=== PATIENT | female | born 1945 | race Hispanic/Latino ===

== ENCOUNTER 2018-08-07 06:20 | Observation (INO) | payer OTHER, MEDICARE ==
[2018-08-04 12:55] LABS: BASOPHILS % 0.3 % (0.0-1.0); EOSINOPHILS # (AUTO) 0.1 (0.0-0.4); EOSINOPHILS % 1.5 % (0.0-6.0); HEMOGLOBIN 11.8 g/dL (12.0-16.0); LYMPHOCYTES % 28.5 % (18.0-39.1); MEAN CORPUSCULAR HEMOGLOBIN 30.2 pg (28-32); MEAN CORPUSCULAR HGB CONC 32.8 g/dL (31-35); MEAN CORPUSCULAR VOLUME 92.1 fL (81-99); MONOCYTES # (AUTO) 0.6 (0.2-0.8); MONOCYTES % 7.7 % (4.4-11.3); NEUTROPHILS # (AUTO) 4.4 (2.1-6.9); NEUTROPHILS % 61.7 % (38.7-80.0); PLATELET COUNT 248 x10e3/uL (140-360); RED BLOOD COUNT 3.91 x10e6/uL (3.6-5.1); RED CELL DISTRIBUTION WIDTH 13.3 % (11.7-14.4)
[2018-08-04 13:12] LABS: ANION GAP 13.9 mmol/L (8-16); BLOOD UREA NITROGEN 24 mg/dL (7-26); BUN/CREATININE RATIO 35 (6-25); CALCIUM 9.9 mg/dL (8.4-10.2); CARBON DIOXIDE 26 mmol/L (22-29); CHLORIDE 105 mmol/L (98-107); CREATININE, SERUM 0.68 mg/dL (0.57-1.11); EST GLOMERULAR FILTRATION RATE > 60 ML/MIN (60-); GLUCOSE 152 mg/dL (74-118); POTASSIUM 3.9 mmol/L (3.5-5.1); SODIUM 141 mmol/L (136-145)
--- NOTE | 2018-08-04 13:59 | Diagnostic Imaging Report ---
Frontal and lateral views of the chest. HISTORY: Preop for right total knee arthroplasty, chronic knee pain COMPARISON: None available. DISCUSSION: Lungs: The lungs are well inflated. No evidence of a consolidative pneumonia or pulmonary alveolar edema. Pleura: No pleural effusion or pneumothorax. Heart and mediastinum: The cardiomediastinal silhouette appears unremarkable. Bones: No acute osseous lesion. Multilevel anterior flowing nonmarginal syndesmophytes, compatible with DISH (Diffuse idiopathic skeletal hyperostosis). IMPRESSION: No acute radiographic abnormality. Signed by: Dr. Leonard Ochoa D.O., M.M.M. on 08/04/2018 1:55 PM
[~2018-08-07 06:20] MED LIST: ACTOS15 MG PO; ATENOLOL50 MG PO; BASAGLAR SC; GLIMEPIRIDE2 MG PO; KLOR-CON 88 MEQ PO; LISINOPRIL10 MG PO; METFORMIN HCL500 M2 PO; ROPIVACAINE 246.25 MG, EPINEPHRINE HCL 1:1000 0.5 MG, CLONIDINE HCL 0.08 MG, KETOROLAC ... INJ ONE; SIMVASTATIN20 MG PO; TYLENOL WITH C1 EACH PO; ULTRAM 50MG50 MG PO
[2018-08-07] MEDS ORDERED: CELECOXIB 200 MG CAP ONE (06:44)
[2018-08-07] MEDS ORDERED: GABAPENTIN 300 MG CAP ONE (06:44)
[2018-08-07] MEDS ORDERED: DEXAMETHASONE SOD PHOS 10 MG/1 ML VIAL ONE (06:44)
[2018-08-07] MEDS ORDERED: CEFAZOLIN SOD 2 GM/D5W 50ML 50 ML IV ONE (06:44)
[2018-08-07] MEDS ORDERED: BACITRACIN 50,000 UNIT VIAL ONE (07:19)
[2018-08-07] MEDS ORDERED: TRANEXAMIC ACID 1,000 MG/10 ML ML ONE (07:19)
[2018-08-07] MEDS ORDERED: HYDROCODONE/APAP 5MG-325MG TAB PO PRN (09:45)
[2018-08-07] MEDS ORDERED: PROMETHAZINE HCL (IM) 25 MG/ML VIAL IM PRN (09:45)
[2018-08-07] MEDS ORDERED: HYDROCODONE/APAP 7.5MG-325MG 1 EA TAB PO PRN (09:45)
[2018-08-07] MEDS ORDERED: DOCUSATE SODIUM 100 MG CAP PO PRN (09:45)
[2018-08-07] MEDS ORDERED: KETOROLAC TROMETHAMINE 30 MG/ML VIAL IV PRN (09:45)
[2018-08-07] MEDS ORDERED: ONDANSETRON HCL INJ 2 MG/ML VIAL IV PRN (09:45)
[2018-08-07] MEDS ORDERED: ACETAMINOPHEN 650 MG SUPP PR PRN (09:45)
[2018-08-07] MEDS ORDERED: DIPHENHYDRAMINE HCL INJ 50 MG/ML VIAL IM/IV PRN (09:45)
--- NOTE | 2018-08-07 10:43 | Diagnostic Imaging Report ---
Exam: Right knee 2 views History: Postop Comparison: None. Findings: See impression Impression: Status post total right knee arthroplasty with intact hardware. Overlying skin thaddeus and subcutaneous gas compatible with recent surgery. No periprosthetic displaced fracture. Signed by: Dr. Christ Mccray M.D. on 08/07/2018 10:40 AM
[2018-08-07] MEDS: ACETAMINOPHEN 1000 MG/100 ML IV SCH ×3 (12:00→23:54)
--- NOTE | 2018-08-07 13:28 | Operative Report ---
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 Throughout this case, my PA's assistance was necessary for retraction of soft tissue and positioning of the extremity. This allows for efficient and technically successful execution of the operation and is considered medically necessary. PREOPERATIVE DIAGNOSIS: Osteoarthritis, right knee. POSTOPERATIVE DIAGNOSIS: Osteoarthritis, right knee. PROCEDURE: Right total knee arthroplasty. INDICATIONS: The patient is a 73-year-old woman with severe untreated osteoarthritis of both knees. She feels the symptoms are worse on the right compared to the left. Further conservative management is not remotely likely to improve her quality of life, relief of pain or mobility. We plan on a right total knee replacement. The risks and benefits have been discussed. She states she understands and wishes to proceed. DESCRIPTION OF PROCEDURE: The patient was brought to the operating room and placed under general anesthetic. She received prophylactic antibiotics, tranexamic acid, and a regional block in the holding area. Her right lower extremity was prepped and draped in a sterile manner. A preoperative time-out was performed. An anterior approach with a medial parapatellar arthrotomy was performed. Soft tissue releases were performed to bring the knee up into flexion. Prior to the surgery, she had no more than 75 degrees of flexion. The remnants of the cruciate ligaments were excised. A Cohen and Nephew posterior stabilized Vianney II system was used throughout the case. Large marginal osteophytes were removed. An extramedullary cutting guide was used to resect the proximal tibia. A +2 mm cut was necessary for the severe medial compartment wear. The tibial baseplate was a size #2. The central fin punch was impacted and attention was directed towards the distal femur. An intramedullary cutting guide was used to resect the distal femur in 6 degrees of valgus and rotation referencing off of a combination of landmarks including Roderfield's line, the epicondylar axis and the posterior condyles. Massive marginal osteophytes were removed. The femoral component was noted to be a size #4. The anterior, posterior, and notch cut were made. Trial reductions were performed. A 13-mm tibial insert was felt to provide optimal soft tissue balancing after all the releases. The patella was resurfaced with a 29 mm x 9 mm patellar button. The thickness was checked before and after and was right around 22 mm. Patellar tracking was noted to be concentric. The trial implants were removed. A 100 mL pre-mixed pericapsular GET injection was placed into the surrounding tissue. The knee was thoroughly irrigated with a shower-tip pulsatile lavage. The components were cemented into place using a single mix of PALACOS cement pre-loaded with antibiotics. Care was taken to remove all extravasated cement. The wound was further irrigated while the cement cured. The arthrotomy was then carefully closed with interrupted #1 Ethibond. The skin was closed with subcuticular Vicryl and thaddeus. A sterile Aquacel bandage was applied. The patient was extubated and transported to the recovery room in stable condition. A hinged knee brace was also applied due to the mild instability. At the end of the procedure, all needle and sponge counts were correct. Estimated blood loss was minimal. Job#: [id number] PUN
[2018-08-07] MEDS ORDERED: CEFAZOLIN SOD 1 GM/D5W 50ML 50 ML IV SCH (14:00)
[2018-08-07] MEDS ORDERED: FENTANYL CITRATE/PF 100MCG/2 ML INJ ONE (15:00)
[2018-08-07] MEDS ORDERED: MIDAZOLAM HCL 2 MG/2 ML VIAL ONE (15:00)
[2018-08-07] MEDS: SODIUM CHLORIDE 0.9% 1000ML 1,000 ML IV SCH ×2 (16:19→19:40)
[2018-08-07] MEDS ORDERED: CELECOXIB 100 MG CAP PO SCH (17:00)
[2018-08-07] MEDS: CELECOXIB 200 MG CAP PO SCH (17:06)
[2018-08-07] MEDS: CEFAZOLIN SOD 1 GM VIAL IV SCH ×2 (17:06→23:53)
[2018-08-07] MEDS: ASPIRIN 325 MG TAB PO SCH (17:06)
[2018-08-07 17:53] VITALS: BP 102/51
[2018-08-07 18:27] VITALS: BP 102/51
[2018-08-07] MEDS ORDERED: EPHEDRINE SULFATE INJ 50 MG/10 ML SYR ONE (18:36)
[2018-08-07] MEDS ORDERED: SEVOFLURANE INHAL SOLN 250 ML PEN BTL ONE (18:36)
[2018-08-07] MEDS ORDERED: PROPOFOL IV EMULSION 10 MG/ML 20 ML VIAL ONE (18:36)
[2018-08-07] MEDS ORDERED: LIDOCAINE HCL 2% LOCAL INJ 5 ML SDV VIAL INJ ONE (18:36)
[2018-08-07] MEDS ORDERED: ONDANSETRON HCL INJ 2 MG/ML VIAL ONE (18:36)
[2018-08-07] MEDS ORDERED: HYDRALAZINE HCL 20 MG/ML VIAL ONE (18:36)
[2018-08-07] MEDS ORDERED: ROPIVACAINE 0.5% 5 MG/ML 30 ML SDV ONE (19:25)
[2018-08-07] MEDS ORDERED: LIDOCAINE 2% /EPINEPHRINE 20 ML SDV INJ ONE (19:25)
[2018-08-07 20:00] VITALS: BP 113/53
[2018-08-07] MEDS ORDERED: ZOLPIDEM TARTRATE 5 MG TAB PO PRN (21:00)
[2018-08-07] MEDS ORDERED: DEXTROSE 50% SYRINGE 50 ML IV PRN (22:45)
[2018-08-07] MEDS: INSULIN LISPRO 100 UNIT/1 ML 3ML VIAL SQ SCH (23:11)
[2018-08-08] VITALS: BP 108/53
[2018-08-08 01:35] VITALS: BP 113/53
[2018-08-08 04:00] VITALS: BP 130/58
[2018-08-08 05:51] LABS: HEMATOCRIT 29.1 % (34.2-44.1); HEMOGLOBIN 9.7 g/dL (12.0-16.0)
[2018-08-08] MEDS: ACETAMINOPHEN 1000 MG/100 ML IV SCH (05:59)
[2018-08-08] MEDS ORDERED: INSULIN LISPRO 100 UNIT/1 ML 3ML VIAL SQ SCH (07:30)
[2018-08-08] MEDS ORDERED: GLIMEPIRIDE 2 MG TAB PO SCH (08:00)
[2018-08-08] MEDS ORDERED: METFORMIN HCL 500 MG TAB CR PO SCH (08:00)
[2018-08-08 08:01] VITALS: BP 150/68
[2018-08-08] MEDS: ASPIRIN 325 MG TAB PO SCH (08:22)
[2018-08-08] MEDS: CELECOXIB 200 MG CAP PO SCH (08:22)
[2018-08-08] MEDS: INSULIN LISPRO 100 UNIT/1 ML 3ML VIAL SQ SCH ×2 (08:25→12:11)
[2018-08-08] MEDS ORDERED: LISINOPRIL 20 MG TAB PO SCH (09:00)
[2018-08-08] MEDS ORDERED: PIOGLITAZONE HCL 15 MG TAB PO SCH (09:00)
[2018-08-08] MEDS ORDERED: POTASSIUM CHLORIDE 10 MEQ TABCR PO SCH (09:00)
[2018-08-08] MEDS ORDERED: POTASSIUM CHLORIDE PO SCH (09:00)
[2018-08-08] MEDS ORDERED: ATENOLOL 50 MG TAB PO SCH (09:00)
[2018-08-08] MEDS ORDERED: CEFAZOLIN SOD 1 GM VIAL IV ONE (09:15)
[2018-08-08] MEDS: CEFAZOLIN SOD 1 GM VIAL IV SCH (09:21)
[2018-08-08] MEDS ORDERED: ACETAMINOPHEN 1000 MG/100 ML IV PRN (09:45)
[2018-08-08 12:06] VITALS: BP 147/66
[2018-08-08] MEDS ORDERED: SIMVASTATIN 20 MG TAB PO SCH (21:00)
== END 2018-08-08 14:13 | disposition home health service (06) ==
LOC: OR 06:20 → PACU V 09:42 → MED/SURG 15:58
PROVIDERS: ADMIT Specialist; ATTEND Specialist
DX: M17.11 Unilateral primary osteoarthritis, right knee (principal); I10 Essential (primary) hypertension; E78.5 Hyperlipidemia, unspecified; E11.9 Type 2 diabetes mellitus without complications; Z87.891 Personal history of nicotine dependence; Z79.84 Long term (current) use of oral hypoglycemic drugs
CPT/HCPCS: 27447; 36415 ×3; 71046; 73560; 80048; 82948 ×2; 85014; 85018; 85025; 86850; 86900; 86920; 93005; 97110; 97116 ×2; 97139; 97161; G0378 ×2; G8978; G8979; J0171; J0360; J0690 ×2; J1100; J1885; J2001 ×2; J2250; J2405; J2795; J7030